=== PATIENT | female | born 1965 | race Caucasian/White ===

== ENCOUNTER 2019-11-14 01:22 | Emergency (ER) | payer MEDICAID ==
[~2019-11-14] VITALS: Ht 162.6 cm; Wt 57.7 kg
--- NOTE | 2019-11-14 01:26 | NUR ---
Dr. Florence notified of patient and condition. Influenza swab ordered and he states he will be out to evaluate the patient shortly.
== END 2019-11-14 03:51 | disposition home or self-care (01) ==
LOC: ER 01:22
DX: B34.9 Viral infection, unspecified (principal); R05 Cough; R06.02 Shortness of breath; R07.89 Other chest pain; R50.9 Fever, unspecified; J02.9 Acute pharyngitis, unspecified
CPT/HCPCS: 36415; 87081; 87502; 87503; 87880; 99283

== ENCOUNTER → 2024-02-14 | Outpatient (CLI) | payer MEDICAID | END | disposition home or self-care (01) | LOC: RAD 08:18 | PROVIDERS: ATTEND Family Medicine | DX: N28.89 Other specified disorders of kidney and ureter (principal); R10.9 Unspecified abdominal pain | CPT/HCPCS: 76770 ==